=== PATIENT | female | born 1985 | race Caucasian/White ===

== ENCOUNTER 2023-05-12 19:08 | Emergency (ER) | payer SELFPAY ==
[~2023-05-12] VITALS: Ht 160 cm; Wt 71.0 kg
[2023-05-12 19:12] VITALS: RESP 16
[2023-05-12 19:43] VITALS: BP 125/82; PULSE 80; TEMP 98.7; O2SAT 100
[2023-05-12] MEDS ORDERED: CEFTRIAXONE SODIUM 500MG VIAL IM ONE (20:45)
[2023-05-12 20:55] LABS: CLARITY URINE CLOUDY (CLEAR); COLOR URINE YELLOW (YELLOW); GLUCOSE URINE NEGATIVE (NEGATIVE); KETONES URINE NEGATIVE (NEGATIVE); LEUKOCYTE ESTERASE URINE 2+ (NEGATIVE); NITRITE URINE NEGATIVE (NEGATIVE); OCCULT BLOOD URINE TRACE (NEGATIVE); PH URINE 5.5 (4.5-8.0); PROTEIN URINE TRACE (NEGATIVE); SPECIFIC GRAVITY URINE 1.025 (1.005-1.030)
[2023-05-12 21:09] LABS: BACTERIA URINE 2+; RBC URINE 0-2 /hpf (0-2); SQUAMOUS EPITHELIAL CELL URINE 2+ /lpf (RARE/1+)
[2023-05-12 21:10] LABS: WBC URINE 15-25 /hpf (0-2)
[2023-05-12 21:51] LABS: HCG SCREEN NEGATIVE
[2023-05-13] MEDS ORDERED: CEFTRIAXONE SODIUM 500MG VIAL IM NR (01:30)
[2023-05-13] MEDS ORDERED: NAPR-1176 MT (01:36)
[2023-05-13] MEDS ORDERED: LIDO700A15 TP (01:36)
[2023-05-13] MEDS ORDERED: DOXY100T2 MT (01:49)
[2023-05-15 04:07] LABS: CHLAMYDIA TRACHOMATIS NAA Positive (Negative); NEISSERIA GONORRHOEAE NAA Negative (Negative)
== END 2023-05-13 01:56 | disposition home or self-care (01) ==
LOC: ER 19:08
DX: M94.0 Chondrocostal junction syndrome [Tietze] (principal); Z98.890 Other specified postprocedural states
CPT/HCPCS: 87491; 87591; 81003; 84703; 87086; 87077; 99284; 71100; 96372; J0696; Z7610 ×2